=== PATIENT | female | born 2000 | race African-American/Black ===

== ENCOUNTER 2019-10-28 18:30 | Inpatient (IN) ==
[2019-10-28 19:14] LABS: Apearance,Urine CLEAR (Clear); Bilirubin,Urine Negative (Negative); Blood, Urine Negative (Negative); Glucose,Urine (UA) Negative (Negative); Ketones,Urine 80 mg/dL (Negative); Mucus,Urine Moderate /LPF (Occasional); Nitrite,Urine Negative (Negative); Protein,Urine 30 MG/DL; RBC,Urine 5 /HPF (0-4); Squamous Epithelial Cell,Urine Occasional /HPF (0-10); Urine Color Yellow (Yellow); Urine Specific Gravity 1.025 (1.001-1.035); WBC,Urine 3 /HPF (0-6)
[2019-10-28] MEDS ORDERED: BUTORPHANOL 2 MG/ML VIAL IV PRN (19:31)
[2019-10-28] MEDS ORDERED: AMPICILLIN INJ 2,000 MG in SODIUM CHLORIDE 0.9% 100 ML IV ONE (19:35)
[2019-10-28 19:55] LABS: Basophils % 0.1 % (0.0-0.8); Eosinophils % 0.1 % (0.00-10.9); Hematocrit 26.9 VOL% (35.7-47.0); Immature Granulocytes % 0.5 %; Immature Granulocytes Absolute 0.04 #; Lymphocytes # 1.5 10*3/uL (1.4-4.0); Lymphocytes % 17.6 % (21.3-54.2); Mean Corpuscular HGB Conc 33.5 GM/DL (32-36); Mean Corpuscular Volume 87.9 FL (87-102); Mean Platelet Volume 10.1 FL (9.6-12.0); Monocytes % 6.7 % (1.7-12.7); Platelet Count 218 T/CUMM (130-400); Red Blood Count 3.06 MC/CUMM (3.8-5.5); Red Cell Distribution Width 13.9 % (9.3-17.3); White Blood Count 8.5 T/CUMM (4-12)
[2019-10-28] MEDS ORDERED: BETAMETH SODIUM PHOS/ACETATE 30 MG/5 ML VIAL IM SCH (20:00)
[2019-10-28 20:09] LABS: Albumin 3.1 G/DL (3.4-5.0); Bilirubin,Total 0.4 MG/DL (0.2-1.0); Calcium 8.6 MG/DL (8.5-10.1); Osmolality,Calculated 266.1 MOS/KG (273-304); Total Protein 7.2 G/DL (6.4-8.3)
[2019-10-28] MEDS: MEPERIDINE 50 MG/1 ML VIAL IV PRN ×2 (20:13→22:32)
[2019-10-28] MEDS: ONDANSETRON 4 MG/2 ML VIAL IV PRN (20:13)
[2019-10-28] MEDS: LACTATED RINGERS 1,000 ML IV SCH (20:18)
[2019-10-28] MEDS ORDERED: OXYTOCIN/LR 20 UNIT/1,000 ML BAG IV ONE (22:37)
[2019-10-28] MEDS ORDERED: miSOPROStoL 200 MCG TABLET ONE (22:39)
[2019-10-28] MEDS ORDERED: TRANEXAMIC ACID 1,000 MG/10 ML VIAL ONE (22:39)
[2019-10-28] MEDS ORDERED: METHYLERGONOVINE 0.2 MG/1 ML AMP ONE (22:40)
[2019-10-28] MEDS ORDERED: CARBOPROST TROMETHAMINE 250 MCG/ML AMP IM ONE (22:40)
[2019-10-28] MEDS ORDERED: LIDOCAINE 1% 50 ML VIAL ONE (22:43)
[2019-10-28] MEDS ORDERED: SODIUM CHLORIDE 0.9% 100 ML IV ONE (22:43)
[2019-10-29] MEDS: AMPICILLIN INJ 1,000 MG in SODIUM CHLORIDE 0.9% 100 ML IV SCH ×2 (00:17→04:20)
[2019-10-29] MEDS: LACTATED RINGERS 1,000 ML IV SCH (00:47)
[2019-10-29 04:18] LABS: Cord Venous Blood HCO3 22.8 MMOL/L; Cord Venous Blood PCO2 38.3 MMHG; Cord Venous Blood PO2 44.7
[2019-10-29 04:18] LABS: Cord Arterial Blood HCO3 21.6 MMOL/L
[2019-10-29] MEDS: MEPERIDINE 50 MG/1 ML VIAL IV PRN (04:18)
[2019-10-29] MEDS: ONDANSETRON 4 MG/2 ML VIAL IV PRN (04:19)
[2019-10-29] MEDS ORDERED: BENZOCAINE 20%/MENTHOL 0.5% SPRAY 56 GM CAN TOP PRN (05:45)
[2019-10-29] MEDS ORDERED: OXYTOCIN/LR 20 UNIT/1,000 ML BAG IV ONE (05:53)
[2019-10-29] MEDS: FERROUS SULFATE 325 MG TABLET PO SCH ×2 (09:20→21:00)
[2019-10-29] MEDS: DOCUSATE SODIUM 100 MG CAPSULE PO SCH ×2 (09:20→21:00)
[2019-10-29 11:24] LABS: Basophils % 0.1 % (0.0-0.8); Hematocrit 23.9 VOL% (35.7-47.0); Immature Granulocytes % 0.4 %; Immature Granulocytes Absolute 0.06 #; Lymphocytes # 1.8 10*3/uL (1.4-4.0); Lymphocytes % 13.4 % (21.3-54.2); Mean Corpuscular HGB Conc 33.5 GM/DL (32-36); Mean Corpuscular Volume 88.2 FL (87-102); Mean Platelet Volume 9.7 FL (9.6-12.0); Monocytes % 7.1 % (1.7-12.7); Platelet Count 225 T/CUMM (130-400); Red Blood Count 2.71 MC/CUMM (3.8-5.5); Red Cell Distribution Width 13.9 % (9.3-17.3); White Blood Count 13.6 T/CUMM (4-12)
[2019-10-29] MEDS: IBUPROFEN 800 MG TABLET PO PRN ×2 (13:26→18:39)
[2019-10-30] MEDS: DOCUSATE SODIUM 100 MG CAPSULE PO SCH ×2 (08:26→21:52)
[2019-10-30] MEDS: FERROUS SULFATE 325 MG TABLET PO SCH ×2 (08:26→21:52)
[2019-10-30] MEDS: IBUPROFEN 800 MG TABLET PO PRN ×2 (08:28→21:52)
[2019-10-31] MEDS: IBUPROFEN 800 MG TABLET PO PRN (05:13)
[2019-10-31 07:24] VITALS: BP 113/72
[2019-10-31] MEDS: FERROUS SULFATE 325 MG TABLET PO SCH (09:30)
[2019-10-31] MEDS: DOCUSATE SODIUM 100 MG CAPSULE PO SCH (09:30)
== END 2019-10-31 15:00 | disposition home or self-care (01) | DRG 560 ==
LOC: N.LDOUT 18:30 → N.LD 18:31 → N.OB 10-29 05:40
PROVIDERS: ADMIT Obstetrics & Gynecology; ATTEND Obstetrics & Gynecology